=== PATIENT | female | born 1995 | race Caucasian/White ===

== ENCOUNTER 2018-05-11 11:12 | Inpatient (IN) ==
[2018-05-11] MEDS ORDERED: ceFAZolin 2 GM Premix Inj 2 GM/50 ML PIGGYBACK IV.SIG ONE ×2 (11:53→12:21)
[2018-05-11] MEDS ORDERED: Morphine Inj 4 MG/ML Vial IV.PUSH ONE (11:53)
[2018-05-11] MEDS ORDERED: Sod Chloride 0.9% Inj 1,000 ML IV.CONT SCH (12:00)
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
[2018-05-11 12:17] LABS: Baso % (Auto) 0.2 % (0.0-2.0); Eos # (Auto) 0.1 th/mm3 (0.0-0.4); Eos % (Auto) 0.4 % (0.0-4.0); Hematocrit 39.4 % (35.0-46.0); Hemoglobin 13.6 gm/dL (11.6-15.3); Lymph % (Auto) 13.8 % (9.0-44.0); Mean Corpuscular HGB Conc 34.5 % (32.0-36.0); Mean Corpuscular Hemoglobin 30.4 pg (27.0-34.0); Mean Corpuscular Volume 88.1 fL (80.0-100.0); Mean Platelet Volume 8.9 fL (7.0-11.0); Mono # (Auto) 0.6 th/mm3 (0.0-0.9); Mono % (Auto) 2.7 % (0.0-8.0); Neut # (Auto) 18.2 th/mm3 (1.8-7.7); Neut % (Auto) 82.9 % (16.0-70.0); Platelet Count 348 th/mm3 (150-450); Red Blood Count 4.46 mil/mm3 (4.00-5.30); Red Cell Distribution Width 12.5 % (11.6-17.2)
[2018-05-11 12:28] LABS: Activated Partial Thrombo Time 24.6 sec (23.4-31.7); Prothrombin Time 10.3 sec (9.8-11.6)
[2018-05-11 12:38] LABS: Anion Gap 11 meq/L (5-15); Blood Urea Nitrogen 11 mg/dL (7-18); Calcium 7.9 mg/dL (8.5-10.1); Carbon Dioxide 22.4 meq/L (21.0-32.0); Chloride 108 meq/L (98-107); Glomerular Filtration Rate Greater Than 89 mL/min (>89); Glucose,Random 135 mg/dL (74-106); Sodium 141 meq/L (136-145)
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
[2018-05-11] MEDS ORDERED: Morphine Sulfate Inj 2 MG/ML Vial IV.PUSH ONE (13:41)
[2018-05-11] MEDS ORDERED: Sod Chloride 0.9% Inj 1,000 ML IV.SIG SCH (13:45)
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
[2018-05-11] MEDS: Sod Chloride 0.9% Inj 1,000 ML IV.CONT SCH (19:22)
[2018-05-11] MEDS ORDERED: Morphine Sulfate Inj 2 MG/ML Vial IV.PUSH PRN (21:30)
[2018-05-12] MEDS: Docusate Sodium 100 MG Capsule PO SCH ×2 (00:31→12:04)
[2018-05-12] MEDS ORDERED: Chlorhexidine Gluconate 2% 1 Pack (2 Cloths) TOPICAL PRN (04:00)
[2018-05-12] MEDS ORDERED: Chlorhexidine Gluconate 2% 1 Pack (2 Cloths) TOPICAL SCH (04:00)
[2018-05-12 05:37] LABS: Baso % (Auto) 0.1 % (0.0-2.0); Eos % (Auto) 0.3 % (0.0-4.0); Hematocrit 33.1 % (35.0-46.0); Hemoglobin 12.1 gm/dL (11.6-15.3); Lymph % (Auto) 16.9 % (9.0-44.0); Mean Corpuscular Hemoglobin 31.6 pg (27.0-34.0); Mean Corpuscular Volume 86.3 fL (80.0-100.0); Mean Platelet Volume 8.2 fL (7.0-11.0); Mono # (Auto) 0.4 th/mm3 (0.0-0.9); Mono % (Auto) 3.3 % (0.0-8.0); Neut # (Auto) 9.2 th/mm3 (1.8-7.7); Neut % (Auto) 79.4 % (16.0-70.0); Platelet Count 212 th/mm3 (150-450); Red Blood Count 3.84 mil/mm3 (4.00-5.30); Red Cell Distribution Width 12.5 % (11.6-17.2); White Blood Count 11.6 th/mm3 (4.0-11.0)
[2018-05-12 05:45] LABS: Mean Corpuscular HGB Conc 36.6 % (32.0-36.0)
[2018-05-12 06:09] LABS: Anion Gap 9 meq/L (5-15); Blood Urea Nitrogen 3 mg/dL (7-18); Calcium 7.3 mg/dL (8.5-10.1); Carbon Dioxide 25.4 meq/L (21.0-32.0); Chloride 105 meq/L (98-107); Glomerular Filtration Rate Greater Than 89 mL/min (>89); Glucose,Random 93 mg/dL (74-106); Potassium 3.5 meq/L (3.5-5.1); Sodium 139 meq/L (136-145)
[2018-05-12 06:24] LABS: Albumin 2.6 g/dL (3.4-5.0); Calcium-Albumin Corrected 8.4 mg/dL (8.5-10.1)
[2018-05-12] MEDS ORDERED: Sodium Chlor 0.9% Inj 500 ML IV.SIG SCH (07:00)
[2018-05-12] MEDS ORDERED: Chlorhexidine Gluconate 2% 1 Pack (2 Cloths) TOPICAL ONE (07:00)
[2018-05-12] MEDS ORDERED: ceFAZolin 1 GM Premix Inj 1 GM/50 ML PIGGYBACK IV.SIG ONE (07:05)
[2018-05-12] MEDS ORDERED: Bupivacaine/Epinephrine Inj 0.25% 50 ML Vial ONE (07:19)
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
[2018-05-12] MEDS: Sod Chloride 0.9% Inj 1,000 ML IV.CONT SCH (08:34)
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
[2018-05-12] MEDS ORDERED: Post-op Orders (for Pharmacy) OTHER STA (09:07)
[2018-05-12] MEDS ORDERED: Morphine Inj 4 MG/ML Vial IV.PUSH PRN (09:07)
--- NOTE | 2018-05-12 09:12 | P.OP ---
- Preoperative Diagnosis (1) Closed fracture of right distal radius (2) Fracture of clavicle Date of procedure: 05/12/18 Procedure: Open reduction internal fixation right clavicle, open reduction to fixation right distal radius Anesthesia: GETA Surgeon: Dhruv Jaramillo MD [place] Welter: FRANCISCO Gabriel PA-C The surgical procedure was assisted by my physician diagnostic assistant. My P.A. presence was necessary throughout this case for the manipulation and positioning of the surgical extremity. My P.A. was assisting me throughout the duration of this procedure. The skill set of a physician diagnostic assistant was medically necessary to complete this procedure. During the surgical case the rn surgical was working at the back table and the physician diagnostic assistant was directly assisting me. Operation and Findings: Implants used: ITS clavicle plate, AAP distal radius plate Plan of activity: Sling right arm, nonweightbearing Details of procedure: Patient was seen and evaluated preoperatively. Patient was found to have a displaced right clavicle shaft fracture and right distal radius fracture. The risks and benefits of surgical and nonsurgical options were discussed in detail and informed consent was obtained for surgery. Patient was brought to the operating room and placed on or table. IV sedation and GETA were administered by anesthesiologist. Antibiotics were given prior to incision. Operative arm and shoulder were prepped with alcohol followed by Hibiclens and draped usual sterile fashion. Timeout procedure was performed. Procedure began with a 4 inch incision over the anterior clavicle. Subcutaneous tissue was dissected with Bovie. The fracture was now visualized. Soft tissue was retracted. Fracture was cleaned with curettes. Attention was now turned to reduction. Gentle traction was applied and fracture tenaculums were used to reduce the fracture. Fracture was manipulated to achieve excellent reduction. Multiplanar fluoroscopy confirmed well aligned fracture. K wires were used to hold provisional fixation. A clavicle plate was selected. Plate was provisionally held in place K wires. 3.5 cortical screws were used to compress plate to bone. Fluoroscopy confirmed appropriate plate placement and fracture reduction. Multiple screws were placed on each side of the fracture. All Screws were predrilled and premeasured for appropriate length. Care was taken to avoid injury to neurovascular structures. Final fluoroscopy revealed well aligned fracture with well-placed hardware. Wound was thoroughly irrigated. Fascia was closed with #1 Vicryl, subcutaneous tissues closed with 3-0 Vicryl, and skin was closed with zac. Sterile dressings were applied. Needle and sponge counts were correct. Patient was now repositioned. The right arm was prepped again with alcohol followed Hibiclens and draped in usual sterile fashion. Attention was now turned towards the right distal radius. A standard volar approach to the distal radius was utilized. A 3 inch incision was made over the FCR tendon. Tendon sheath was opened. Pronator quadratus was elevated up. The fracture site was now visualized. The fracture did have intra-articular extension. Traction was applied. The articular surface was reduced. Fracture fragments were manipulated to achieve excellent reduction. K wires were used to hold provisional fixation. Fluoroscopy confirmed appropriate alignment of fracture. A variable angle distal radius plate was selected. Plate was provisionally fixed to bone with K wires. 2.5 cortical screws were used to compress plate to bone. Fluoroscopy confirmed appropriate alignment of fracture with well-placed hardware. Multiple 2.5 locking screws were now placed distally. Screws were predrilled and measured for appropriate length. 2 additional screws were placed into the shaft. K wires were removed. Final fluoroscopy revealed excellent of fracture with well-placed hardware. The wound was thoroughly irrigated with sterile saline. Subcutaneous tissue was closed with 3-0 Vicryl and skin was closed with 3-0 nylon. Sterile dressings were applied with Xeroform, 4 x 4, soft roll, and a well padded volar splint. Patient was awakened and transferred to recovery room in stable condition
[2018-05-12] MEDS ORDERED: fentaNYL Citrate Inj 100 MCG/2 ML Ampul ONE ×2 (10:34→10:35)
--- NOTE | 2018-05-12 10:57 | XR ---
EXAM DATE: 05/12/2018 10:38 AM EST AGE/SEX: 22 years / Female INDICATIONS: Right clavicle open reduction internal fixation. CLINICAL DATA: This is the patient's initial encounter. Patient reports that signs and symptoms have been present for 1 day and indicates a pain score of Nonresponsive. MEDICAL/SURGICAL HISTORY: Non-responsive. Non-responsive. COMPARISON: No prior exams available for comparison. FINDINGS: Plate with screws is seen bridging the fracture of the midshaft of the clavicle. Alignment anatomic. CONCLUSION: Anatomic alignment. Electronically signed by: Piotr Thomas MD Board Certified Radiologist 05/12/2018 10:56 AM EST
--- NOTE | 2018-05-12 10:57 | XR ---
EXAM DATE: 05/12/2018 10:39 AM EST AGE/SEX: 22 years / Female INDICATIONS: Right wrist open reduction internal fixation. CLINICAL DATA: This is the patient's initial encounter. Patient reports that signs and symptoms have been present for 1 day and indicates a pain score of Nonresponsive. MEDICAL/SURGICAL HISTORY: Non-responsive. Non-responsive. COMPARISON: [facility] [place], WRIST COMPLETE RIGHT MIN 3V, 05/11/2018. . FINDINGS: Plate with screws is seen bridging the fracture of the distal radius. Alignment is anatomic. CONCLUSION: Anatomic alignment Electronically signed by: Piotr Thomas MD Board Certified Radiologist 05/12/2018 10:55 AM EST
[2018-05-12] MEDS: Calcium/Vitamin D 250/125 MG Tablet PO SCH ×2 (13:37→18:15)
[2018-05-12] MEDS ORDERED: ceFAZolin Inj 2,000 MG in Sodium Chlor 0.9% Inj 80 ML IV.SIG SCH (16:00)
[2018-05-12] MEDS: ceFAZolin 2 GM Premix Inj 2 GM/50 ML PIGGYBACK IV.SIG SCH ×2 (18:15→23:42)
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
[2018-05-12] MEDS: Senna/Docusate Sodium 8.6/50 MG Tablet PO SCH (21:34)
[2018-05-13 05:15] LABS: Baso % (Auto) 0.1 % (0.0-2.0); Eos # (Auto) 0.1 th/mm3 (0.0-0.4); Eos % (Auto) 0.7 % (0.0-4.0); Hematocrit 33.5 % (35.0-46.0); Hemoglobin 11.6 gm/dL (11.6-15.3); Lymph # (Auto) 2.7 th/mm3 (1.0-4.8); Lymph % (Auto) 21.7 % (9.0-44.0); Mean Corpuscular HGB Conc 34.6 % (32.0-36.0); Mean Corpuscular Hemoglobin 30.1 pg (27.0-34.0); Mean Corpuscular Volume 87.2 fL (80.0-100.0); Mean Platelet Volume 8.4 fL (7.0-11.0); Mono # (Auto) 0.6 th/mm3 (0.0-0.9); Mono % (Auto) 4.9 % (0.0-8.0); Neut # (Auto) 9.2 th/mm3 (1.8-7.7); Neut % (Auto) 72.6 % (16.0-70.0); Platelet Count 215 th/mm3 (150-450); Red Blood Count 3.85 mil/mm3 (4.00-5.30); Red Cell Distribution Width 12.7 % (11.6-17.2); White Blood Count 12.6 th/mm3 (4.0-11.0)
[2018-05-13] MEDS: Methocarbamol 500 MG Tablet PO SCH ×3 (05:30→21:22)
[2018-05-13 05:37] LABS: Anion Gap 6 meq/L (5-15); Blood Urea Nitrogen 5 mg/dL (7-18); Calcium 7.9 mg/dL (8.5-10.1); Carbon Dioxide 26.7 meq/L (21.0-32.0); Chloride 108 meq/L (98-107); Glomerular Filtration Rate Greater Than 89 mL/min (>89); Glucose,Random 98 mg/dL (74-106); Potassium 3.4 meq/L (3.5-5.1); Sodium 141 meq/L (136-145)
--- NOTE | 2018-05-13 06:56 | P.PNOP ---
Subjective Interval history: POD 1 s/p ORIF right clavicle and right wrist doing well. pain controlled. slight pain in wrist Physical Exam Vital signs: Vital Signs 05/12/18 10:28 05/12/18 10:34 05/12/18 10:45 Temperature 96.7 F L Pulse Rate 75 95 H Respiratory Rate 16 16 Blood Pressure 97/54 L 117/72 Pulse Oximetry 96 100 100 05/12/18 11:00 05/12/18 11:15 05/12/18 11:53 Temperature 97.6 F 97.8 F Pulse Rate 79 86 94 H Respiratory Rate 18 18 17 Blood Pressure 118/73 119/68 122/73 Pulse Oximetry 100 100 99 05/12/18 16:00 05/12/18 19:14 05/12/18 20:00 Temperature 98.3 F 98.3 F Pulse Rate 86 82 Respiratory Rate 18 18 Blood Pressure 110/67 118/67 Pulse Oximetry 98 98 98 05/12/18 23:12 05/13/18 04:45 Temperature 98.0 F 98.0 F Pulse Rate 67 82 Respiratory Rate 18 18 Blood Pressure 111/66 103/58 L Pulse Oximetry 100 99 Intake & Output 05/12/18 05/12/18 05/13/18 06:59 18:59 06:59 Intake Total 0 / 0 2750 / 2750 100 / 100 Output Total 50 / 50 Balance 0 / 0 2700 / 2700 100 / 100 Weight 39.4 kg 39.4 kg Intake: IV 1000 / 1000 100 / 100 NS Inj 1,000 ML @ 100 mls/hr IV 1000 / 1000 .CONT .Q10H [facility] Rx#:[id number] Ancef 2 GM Premix Inj 2 gm In 100 / 100 50 ml @ 200 mls/hr IV.SIG Q8H [facility] Rx#:[id number] Oral 0 / 0 850 / 850 0 / 0 Anesthesia Amount 900 / 900 Output: Estimated Blood Loss 50 / 50 Other: # Voids 2 3 2 Date of Last Bowel Movement 05/10/18 05/10/18 # Bowel Movements 0 0 Narrative: RUE: Dressing of clavicle clean and dry. intact. +short arm splint. intact. nvi Results - Labs CBC & Chem 7: 05/13/18 04:52 05/13/18 04:52 Laboratory Results - last 24 hr 05/12/18 05/13/1805/13/18 05:18 04:52 04:52 WBC 12.6 H RBC 3.85 L Hgb 11.6 Hct 33.5 L MCV 87.2 MCH 30.1 MCHC 34.6 RDW 12.7 Plt Count 215 MPV 8.4 Neut % (Auto) 72.6 H Lymph % (Auto) 21.7 Tucker % (Auto) 4.9 Eos % (Auto) 0.7 Baso % (Auto) 0.1 Neut # (Auto) 9.2 H Lymph # (Auto) 2.7 Tucker # (Auto) 0.6 Eos # (Auto) 0.1 Baso # (Auto) 0.0 WBC Differential . . Diff Scan Auto diff confirmed Differential Comment Auto diff final Sodium 141 Potassium 3.4 L Chloride 108 H Carbon Dioxide 26.7 Anion Gap 6 BUN 5 L Creatinine 0.44 L Estimated GFR Greater than 89 Random Glucose 98 Calcium 7.9 L Magnesium 05/13/18 04:52 WBC RBC Hgb Hct MCV MCH MCHC RDW Plt Count MPV Neut % (Auto) Lymph % (Auto) Tucker % (Auto) Eos % (Auto) Baso % (Auto) Neut # (Auto) Lymph # (Auto) Tucker # (Auto) Eos # (Auto) Baso # (Auto) WBC Differential Diff Scan Differential Comment Sodium Potassium Chloride Carbon Dioxide Anion Gap BUN Creatinine Estimated GFR Random Glucose Calcium Magnesium 2.1 - Imaging Impressions Clavicle X-Ray 05/12/18 00:00 CONCLUSION: Anatomic alignment. Wrist X-Ray 05/12/18 00:00 CONCLUSION: Anatomic alignment Assessment and Plan - Assessment and Plan 1) Right Distal Radius and Right Clavicle Fx s/p ORIF - POD 1 -NWB -splint and sling -maintain clavicle surgical dressing x 6 days, then progress to daily with primapore. begin adding xeroform on POD 10 -maintain wrist splint at all times -will plan to transition to removable brace in office in 2 weeks -f/u with Gladys or SHAREE in 2 weeks -ortho surgeries complete -planned orbital surgery today -ortho cleared for DC home once completed E-FORCSE Prescription Drug Monitoring Database has been queried and verified prior to prescribing the controlled substance. Acute pain exception. This patient has normal, predicted, physiological, and time limited response to an adverse mechanical stimulus associated with surgery, trauma, or acute illness as described in my notes. There is a lack of alternative treatment options other than to include the prescribed narcotic treatment for this condition.
[2018-05-13] MEDS ORDERED: Bupivacaine/Epinephrine Inj 0.25% 50 ML Vial ONE (08:43)
[2018-05-13] MEDS: ceFAZolin 2 GM Premix Inj 2 GM/50 ML PIGGYBACK IV.SIG SCH (10:25)
[2018-05-13] MEDS ORDERED: Metoprolol Tartrate 25 MG Tablet PO ONE (10:30)
[2018-05-13] MEDS ORDERED: Chlorhexidine Gluconate 2% 1 Pack (2 Cloths) TOPICAL ONE (10:30)
[2018-05-13] MEDS ORDERED: Sodium Chlor 0.9% Inj 500 ML IV.CONT ONE (10:30)
[2018-05-13] MEDS ORDERED: Sugammadex Inj 200 MG/2 ML Vial IV.PUSH ONE (10:45)
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
[2018-05-13] MEDS ORDERED: fentaNYL Citrate Inj 100 MCG/2 ML Ampul ONE (13:00)
[2018-05-13] MEDS ORDERED: *morphine SULFATE 4 MG/ML PERIprocedure ONLY ONE (13:25)
[2018-05-13] MEDS: Senna/Docusate Sodium 8.6/50 MG Tablet PO SCH ×2 (13:56→21:22)
[2018-05-13] MEDS: Calcium/Vitamin D 250/125 MG Tablet PO SCH ×3 (13:56→18:00)
[2018-05-14 04:14] LABS: Baso # (Auto) 0.1 th/mm3 (0.0-0.2); Baso % (Auto) 0.5 % (0.0-2.0); Eos # (Auto) 0.1 th/mm3 (0.0-0.4); Eos % (Auto) 0.7 % (0.0-4.0); Hematocrit 33.7 % (35.0-46.0); Hemoglobin 11.9 gm/dL (11.6-15.3); Lymph # (Auto) 3.1 th/mm3 (1.0-4.8); Lymph % (Auto) 26.7 % (9.0-44.0); Mean Corpuscular HGB Conc 35.1 % (32.0-36.0); Mean Corpuscular Hemoglobin 30.4 pg (27.0-34.0); Mean Corpuscular Volume 86.5 fL (80.0-100.0); Mean Platelet Volume 8.5 fL (7.0-11.0); Mono # (Auto) 0.5 th/mm3 (0.0-0.9); Mono % (Auto) 4.5 % (0.0-8.0); Neut # (Auto) 7.9 th/mm3 (1.8-7.7); Neut % (Auto) 67.6 % (16.0-70.0); Platelet Count 214 th/mm3 (150-450); Red Cell Distribution Width 12.6 % (11.6-17.2); White Blood Count 11.7 th/mm3 (4.0-11.0)
[2018-05-14 04:38] LABS: Anion Gap 7 meq/L (5-15); Blood Urea Nitrogen 5 mg/dL (7-18); Calcium 7.9 mg/dL (8.5-10.1); Carbon Dioxide 28.1 meq/L (21.0-32.0); Chloride 106 meq/L (98-107); Glomerular Filtration Rate Greater Than 89 mL/min (>89); Glucose,Random 89 mg/dL (74-106); Potassium 3.9 meq/L (3.5-5.1); Sodium 141 meq/L (136-145)
[2018-05-14] MEDS: Methocarbamol 500 MG Tablet PO SCH ×2 (05:25→14:33)
--- NOTE | 2018-05-14 06:23 | P.PNOP ---
Subjective Interval history: POD 2 s/p ORIF right clavicle and right wrist doign well. pain controlled. out of bed on own with minimal difficulty Physical Exam Vital signs: Vital Signs 05/13/18 08:00 05/13/18 12:51 05/13/18 12:55 Temperature 97.7 F 97.2 F L Pulse Rate 78 85 Respiratory Rate 16 14 Blood Pressure 104/58 L 99/56 L Pulse Oximetry 98 100 05/13/18 13:00 05/13/18 13:15 05/13/18 13:30 Temperature Pulse Rate 94 H 87 91 H Respiratory Rate 12 24 15 Blood Pressure 114/68 114/67 115/70 Pulse Oximetry 100 100 100 05/13/18 16:01 05/13/18 17:37 05/13/18 19:53 Temperature 98.0 F 98 F Pulse Rate 78 95 H Respiratory Rate 18 19 Blood Pressure 115/62 112/57 L Pulse Oximetry 96 97 98 05/14/18 00:26 Temperature 97.6 F Pulse Rate 68 Respiratory Rate 18 Blood Pressure 108/59 L Pulse Oximetry 98 Intake & Output 05/13/18 05/13/18 05/14/18 06:59 18:59 06:59 Intake Total 100 / 100 1050 / 1050 Balance 100 / 100 1050 / 1050 Weight 39.4 kg Intake: IV 100 / 100 1050 / 1050 LR 1000 mL Inj 1,000 ML @ 50 1000 / 1000 mls/hr IV.CONT .Q20H [facility] Rx#: [id number] Ancef 2 GM Premix Inj 2 gm In 100 / 100 50 / 50 50 ml @ 200 mls/hr IV.SIG Q8H [facility] Rx#:[id number] Oral 0 / 0 Other: # Voids 2 2 # Incontinent Voids 1 Date of Last Bowel Movement 05/10/18 # Bowel Movements 0 Narrative: RUE: Dressing of shoulder clean and dry. intact. +short arm splint. intact. nvi Results - Labs CBC & Chem 7: 05/14/18 03:50 05/14/18 03:50 Laboratory Results - last 24 hr 05/13/18 05/14/18 05/14/18 04:52 03:50 03:50 WBC 11.7 H RBC 3.90 L Hgb 11.9 Hct 33.7 L MCV 86.5 MCH 30.4 MCHC 35.1 RDW 12.6 Plt Count 214 MPV 8.5 Neut % (Auto) 67.6 Lymph % (Auto) 26.7 [place] % (Auto) 4.5 Eos % (Auto) 0.7 Baso % (Auto) 0.5 Neut # (Auto) 7.9 H Lymph # (Auto) 3.1 [place] # (Auto) 0.5 Eos # (Auto) 0.1 Baso # (Auto) 0.1 WBC Differential . Differential Comment Auto diff final Sodium 141 Potassium 3.9 Chloride 106 Carbon Dioxide 28.1 Anion Gap 7 BUN 5 L Creatinine 0.39 L Estimated GFR Greater than 89 Random Glucose 89 Calcium 7.9 L Magnesium 2.1 Assessment and Plan - Assessment and Plan 1) Right Distal Radius and Right Clavicle Fx s/p ORIF - POD 2 -NWB -splint and sling -maintain clavicle surgical dressing x 6 days, then progress to daily with primapore. begin adding xeroform on POD 10 -maintain wrist splint at all times -will plan to transition to removable brace in office in 2 weeks -f/u with Gladys or PA in 2 weeks -ortho surgeries complete -ortho cleared for DC home [id number] Prescription Drug Monitoring Database has been queried and verified prior to prescribing the controlled substance. Acute pain exception. This patient has normal, predicted, physiological, and time limited response to an adverse mechanical stimulus associated with surgery, trauma, or acute illness as described in my notes. There is a lack of alternative treatment options other than to include the prescribed narcotic treatment for this condition.
[2018-05-14 06:26] VITALS: RESP 16
[2018-05-14 09:02] VITALS: TEMP 98.1
[2018-05-14] MEDS: Senna/Docusate Sodium 8.6/50 MG Tablet PO SCH (09:52)
[2018-05-14] MEDS: Calcium/Vitamin D 250/125 MG Tablet PO SCH ×3 (09:52→18:51)
--- NOTE | 2018-05-14 11:18 | P.DCO ---
- Physical Therapy Order: Evaluate and treat, Improve ambulation, Strength and gait training - Home Health Nursing Order: Nursing assessment with vital signs - Case Management Consult Case Management Consult-Home Health: Yes - Certification I have seen patient Darcy Aldana on 05/14/18. My clinical findings support the need for the requested home health care services because: Limited mobility due to disease progression, Deconditioned with increased weakness, High risk of falls I certify that my clinical findings support that this patient is homebound because: Post-op weakness
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
--- NOTE | 2018-05-14 16:32 | P.PN ---
Subjective Interval history: Patient doing well. No new complaints. Patient endorses normal vision in the left eye and no restriction in gaze and/or diplopia Physical Exam Vital signs: Vital Signs 05/13/18 17:37 05/13/18 19:53 05/14/18 00:26 Temperature 98.0 F 98 F 97.6 F Pulse Rate 78 95 H 68 Respiratory Rate 18 19 18 Blood Pressure 115/62 112/57 L 108/59 L Pulse Oximetry 97 98 98 05/14/18 04:34 05/14/18 08:19 Temperature 98 F 98.1 F Pulse Rate 71 89 Respiratory Rate 16 16 Blood Pressure 100/56 L 111/59 L Pulse Oximetry 97 99 Intake & Output 05/13/18 05/14/18 05/14/18 18:59 06:59 18:59 Intake Total 1050 / 1050 Balance 1050 / 1050 Intake: IV 1050 / 1050 LR 1000 mL Inj 1,000 ML @ 50 1000 / 1000 mls/hr IV.CONT .Q20H [facility] Rx#: [id number] Ancef 2 GM Premix Inj 2 gm In 50 / 50 50 ml @ 200 mls/hr IV.SIG Q8H [facility] Rx#:[id number] Other: # Voids 2 # Incontinent Voids 1 Date of Last Bowel Movement 05/10/18 Narrative: Vision intact by exam Extraocular muscles intact and without restriction V1 to 3 within normal limits and symmetric Results - Labs CBC & Chem 7: 05/14/18 03:50 05/14/18 03:50 Laboratory Results - last 24 hr 05/14/18 05/14/18 03:50 03:50 WBC 11.7 H RBC 3.90 L Hgb 11.9 Hct 33.7 L MCV 86.5 MCH 30.4 MCHC 35.1 RDW 12.6 Plt Count 214 MPV 8.5 Neut % (Auto) 67.6 Lymph % (Auto) 26.7 [place] % (Auto) 4.5 Eos % (Auto) 0.7 Baso % (Auto) 0.5 Neut # (Auto) 7.9 H Lymph # (Auto) 3.1 [place] # (Auto) 0.5 Eos # (Auto) 0.1 Baso # (Auto) 0.1 WBC Differential . Differential Comment Auto diff final Sodium 141 Potassium 3.9 Chloride 106 Carbon Dioxide 28.1 Anion Gap 7 BUN 5 L Creatinine 0.39 L Estimated GFR Greater than 89 Random Glucose 89 Calcium 7.9 L Assessment and Plan - Assessment (1) Orbital fracture Code(s): S02.80XA - Fracture of other specified skull and facial bones, unspecified side, initial encounter for closed fracture Status: Acute - Plan 22-year-old female status post left orbital floor fracture ORIF Doing well Ophthalmology consult May DC per primary Please have patient follow-up in 2 weeks in my clinic (1) Orbital fracture Qualifiers: Encounter type: initial encounter Fracture type: closed Qualified Code(s): S02.80XA - Fracture of other specified skull and facial bones, unspecified side , initial encounter for closed fracture
--- NOTE | 2018-05-14 16:37 | P.OP ---
- Preoperative Diagnosis (1) Orbital fracture - Postoperative Diagnosis (1) Orbital fracture Date of procedure: 05/13/18 Procedure: Open reduction internal fixation of left orbital floor fracture with resorbable implant ([id number]) Implants: KLS Jason resorbable orbital floor implant Anesthesia: GETA Surgeon: Ranjan Rangel MD Operation and Findings: 22-year-old female who presented with left orbital floor fracture. Risk benefits alternative treatments were discussed. All questions were answered and the patient expressed understanding. Patient elected to assume the risks of open reduction internal fixation of left orbital floor fracture. Informed consent was obtained. The patient was given antibiotics on-call to the operating room. The patient was taken to the operating room and all pressure points were padded. A surgical timeout was performed. SCDs were in place the time of induction. After the smooth induction of general anesthesia, the surgical site was prepped and draped in the usual sterile fashion. Quarter percent Marcaine with epinephrine was instilled into the surgical site. Through a trans-conjunctival preseptal approach, the orbital rim was encountered. The arcuate ligament was released from the inferior orbital rim. The orbital floor was exposed in a subperiosteal plane. The orbital contents were reduced into the orbit from the maxillary sinus. A KLS Jason resorbable "guitar pick" implant was placed. A forced duction test revealed no restriction in movement of the globe. All needle sponge and estimate counts were correct x2. The patient was awoken from anesthesia and arrived stable and doing well to the PACU.
[2018-05-14 17:21] VITALS: BP 111/70; PULSE 80; O2SAT 95
== END 2018-05-14 19:01 | disposition home health service (06) ==
LOC: NEPE 11:12 → NEDA 15:35 → N06 17:00
PROVIDERS: ADMIT Surgery; ATTEND Surgery